=== PATIENT | male | born 1950 | race Caucasian/White ===

== ENCOUNTER → 2019-01-06 | Outpatient (CLI) | payer MEDICARE, OTHER ==
--- NOTE | 2019-01-06 17:51 | REP ---
MRI brain without contrast: History: Paresthesias of the skin. No comparison brain imaging. Technique: Axial and sagittal imaging planes are utilized for T1 and T2-weighted scans. Sequences include spin-echo, fast spin echo, FLAIR, and diffusion weighted sequences. MRI findings: No bony calvarial lesion is appreciated. Craniocervical junction and upper cervical cord are normal in appearance. There are mild mucosal changes affecting the ethmoid , frontal, left maxillary sinus as consistent with mild paranasal sinus disease. No intraorbital abnormality is seen. The deep facial and skull base soft tissues are unremarkable. Duran-white differentiation pattern is normal above and below the tentorium. There is no significant white matter lesion. There is no evidence of intracranial hemorrhage. Diffusion weighted scans show no evidence of acute ischemia. There is a pattern of low T1 low T2 signal intensity in the basal ganglia bilaterally consistent with physiologic basal ganglia calcification. No extra-axial fluid collection or mass seen. Impression: No acute intracranial abnormality. Electronically Signed by Miguel A Niño MD 01/06/2019 06:23 P
== END ==
LOC: M RAD 15:58
PROVIDERS: ATTEND Nurse Practitioner Family
DX: R20.2 Paresthesia of skin (principal)

== ENCOUNTER 2019-01-26 01:14 | Emergency (ER) | payer MEDICARE, OTHER ==
[~2019-01-26] VITALS: Ht 180.3 cm; Wt 100.0 kg
[2019-01-26 01:21] VITALS: BP 147/79
[2019-01-26] MEDS ORDERED: LACTULOSE 20 GM/30 ML SYRUP UD PO ONE (02:45)
[2019-01-26] MEDS ORDERED: GLYCERIN ADULT SUPP PR ONE (04:30)
== END 2019-01-26 05:23 | disposition home or self-care (01) ==
LOC: M ED 01:14
DX: K59.00 Constipation, unspecified (principal); J44.9 Chronic obstructive pulmonary disease, unspecified; Z87.891 Personal history of nicotine dependence; Z79.899 Other long term (current) drug therapy

== ENCOUNTER → 2020-08-25 | Outpatient (CLI) | payer MEDICARE, MEDICAID ==
[2020-08-25 13:16] LABS: ALT/SGPT 21 U/L (12-78); BILIRUBIN,TOTAL 0.7 MG/DL (0.2-1.0); BLOOD UREA NITROGEN 24 MG/DL (7-18); CALCIUM LEVEL 9.7 MG/DL (8.8-10.2); CARBON DIOXIDE LEVEL 28 MEQ/L (21-32); CHLORIDE LEVEL 108 MEQ/L (98-107); CHOLESTEROL LEVEL 218 MG/DL (<200); CHOLESTEROL RISK RATIO 4.274 (<5); CREATININE FOR GFR 1.16 MG/DL (0.70-1.30); FREE T4 1.11 NG/DL (0.76-1.46); GLOMERULAR FILTRATION RATE > 60.0 (>49); GLUCOSE, FASTING 101 MG/DL (70-100); HDL CHOLESTEROL 51 MG/DL (>40); LDL CHOLESTEROL 147 MG/DL (<100); NON-HDL-C 167 MG/DL; POTASSIUM SERUM 4.4 MEQ/L (3.5-5.1); SODIUM LEVEL 139 MEQ/L (136-145); TRIGLYCERIDES LEVEL 101 MG/DL (<150)
[2020-08-25 13:19] LABS: MAU/CREAT RATIO 3.9 MCG/MG (0.0-30.0)
[2020-08-25 13:25] LABS: HEMOGLOBIN A1c 5.7 %
== END ==
LOC: M LAB 11:43
PROVIDERS: ATTEND Physician Assistant
DX: E78.2 Mixed hyperlipidemia (principal); E11.9 Type 2 diabetes mellitus without complications; E03.9 Hypothyroidism, unspecified; I11.9 Hypertensive heart disease without heart failure; Z12.5 Encounter for screening for malignant neoplasm of prostate
CPT/HCPCS: 36415; 80053; 80061; 82043; 83036; 84439; 84443; G0103; G0463

== ENCOUNTER → 2021-05-10 | Outpatient (CLI) | payer OTHER, MEDICAID ==
[2021-05-10 14:46] LABS: BLOOD UREA NITROGEN 22 MG/DL (7-18); CREATININE FOR GFR 1.14 MG/DL (0.70-1.30); GLOMERULAR FILTRATION RATE > 60.0 (>49); GLUCOSE, FASTING 126 MG/DL (70-100)
[2021-05-10 14:47] LABS: ALBUMIN 3.6 GM/DL (3.2-5.2); ALT/SGPT 21 U/L (12-78); BILIRUBIN,TOTAL 0.4 MG/DL (0.2-1.0); CALCIUM LEVEL 9.3 MG/DL (8.8-10.2); CARBON DIOXIDE LEVEL 28 MEQ/L (21-32); CHLORIDE LEVEL 106 MEQ/L (98-107); CHOLESTEROL LEVEL 144 MG/DL (<200); HDL CHOLESTEROL 45 MG/DL (>40); LDL CHOLESTEROL 75 MG/DL (<100); NON-HDL-C 99 MG/DL; POTASSIUM SERUM 4.1 MEQ/L (3.5-5.1); SODIUM LEVEL 140 MEQ/L (136-145); TRIGLYCERIDES LEVEL 118 MG/DL (<150); VITAMIN B12 LEVEL 553 PG/ML (247-911)
[2021-05-10 15:16] LABS: MALB URINE SIEMENS 21.6 MG/L; MAU/CREAT RATIO 9.9 MCG/MG (0.0-30.0)
== END ==
LOC: M PLALAB 10:30
PROVIDERS: ATTEND Nurse Practitioner Adult Health
DX: E03.9 Hypothyroidism, unspecified (principal); E11.9 Type 2 diabetes mellitus without complications; I11.9 Hypertensive heart disease without heart failure; R41.3 Other amnesia; E78.2 Mixed hyperlipidemia

== ENCOUNTER → 2022-08-27 | Outpatient (CLI) | payer OTHER, MEDICAID ==
[2022-08-27 18:51] LABS: ALBUMIN 3.8 G/DL (3.2-5.2); ALKALINE PHOSPHATASE 108 U/L (46-116); ALT/SGPT 15 U/L (7.0-40); AST/SGOT < 8 U/L (<34); BILIRUBIN,TOTAL 0.5 MG/DL (0.3-1.2); BLOOD UREA NITROGEN 22 MG/DL (9-23); CALCIUM LEVEL 9.3 MG/DL (8.3-10.6); CARBON DIOXIDE LEVEL 28 MMOL/L (20-31); CHLORIDE LEVEL 109 MMOL/L (98-107); CHOLESTEROL LEVEL 131 MG/DL (<200); CREATININE FOR GFR 1.12 MG/DL (0.70-1.30); GLOMERULAR FILTRATION RATE > 60.0 (>42); GLUCOSE, FASTING 104 MG/DL (74-106); HDL CHOLESTEROL 42.2 MG/DL (>40); LDL CHOLESTEROL 69.2 MG/DL (<100); NON-HDL-C 88.8 MG/DL; POTASSIUM SERUM 4.5 MMOL/L (3.5-5.1); SODIUM LEVEL 143 MMOL/L (136-145); TOTAL PROTEIN 6.7 G/DL (5.7-8.2); TRIGLYCERIDES LEVEL 98 MG/DL (<150)
[2022-08-27 18:53] LABS: THYROID STIMULATING HORMONE 1.312 uIU/ML (0.55-4.78); VITAMIN B12 LEVEL 235 PG/ML (211-911)
== END ==
LOC: M PLALAB 15:13
PROVIDERS: ATTEND Nurse Practitioner Adult Health
DX: E78.2 Mixed hyperlipidemia (principal); E11.9 Type 2 diabetes mellitus without complications; E03.9 Hypothyroidism, unspecified; R41.3 Other amnesia; I11.9 Hypertensive heart disease without heart failure

== ENCOUNTER 2023-08-21 08:36 | Day surgery (SDC) | payer OTHER, MEDICAID ==
[~2023-08-21] VITALS: Ht 180.3 cm; Wt 114.7 kg
[~2023-08-21 08:36] MED LIST: ALBU8.5H INH; FURO40TA2 PO; LEVO50TA5 PO; METF500T13 PO; METO50TA7 PO; MM S100C PO; OMEP40CA5 PO; PHENYLEPHRINE 10% OPHTH SOL 5ML OD PRN; SIMV-254 PO; SYMB16INH INH; XALA0.007 OU
[2023-08-21] MEDS: OFLOXACIN 0.3 % (OCUFLOX) OPTH SOL 5ML OD ONE (09:50)
[2023-08-21] MEDS: LIDOCAINE 3.5 % 1ML OPHTH TOPICAL GEL OU ONE (09:50)
[2023-08-21] MEDS ORDERED: fentaNYL 100 MCG/2 ML INJECTION As Ordered ONE (10:18)
[2023-08-21] MEDS ORDERED: MIDAZOLAM INJ 2MG/2ML VIAL As Ordered ONE (10:18)
[2023-08-21] MEDS: CEFUROXIME 1MG/0.1ML INTRACAMERAL INJ As Ordered ONE (10:25)
[2023-08-21] MEDS: LIDOCAINE 1% SDV 5ML VIAL As Ordered ONE (10:25)
[2023-08-21] MEDS: BSS IRRIG/VANCO(10MG)/TOBRA(5MG)/EPINEPH(1:1000-0.5CC)500ML BAG-ORONLY As Ordered ONE (10:25)
[2023-08-21 10:36] VITALS: BP 157/88; TEMP 97.9; O2SAT 95
[2023-08-21] MEDS: ATROPINE SULFATE 1% OPHTH SOLN 2ML BTL OD SCH (11:39)
[2023-08-21] MEDS: PHENYLEPHRINE 2.5% OPHTH SOL 2ML OD SCH (11:40)
[2023-08-21] MEDS: TROPICAMIDE 1% OPHTH SOLN 15ML OD SCH (11:40)
== END 2023-08-21 10:59 | disposition home or self-care (01) ==
LOC: M SDC 08:36
PROVIDERS: ATTEND Ophthalmology
DX: H25.11 Age-related nuclear cataract, right eye (principal); I10 Essential (primary) hypertension; E11.9 Type 2 diabetes mellitus without complications; Z86.73 Personal history of transient ischemic attack (TIA), and cerebral infarction without residual deficits; E03.9 Hypothyroidism, unspecified; J44.9 Chronic obstructive pulmonary disease, unspecified; K59.04 Chronic idiopathic constipation; R21 Rash and other nonspecific skin eruption; Z79.51 Long term (current) use of inhaled steroids; Z79.899 Other long term (current) drug therapy
CPT/HCPCS: 66984; J0697; J2250; J3010; V2632

== ENCOUNTER 2023-09-11 10:41 | Day surgery (SDC) | payer OTHER, MEDICAID ==
[~2023-09-11] VITALS: Ht 180.3 cm; Wt 102.1 kg
[~2023-09-11 10:41] MED LIST changes: -PHENYLEPHRINE 10% OPHTH SOL 5ML OD PRN; +PHENYLEPHRINE 10% OPHTH SOL 5ML OS PRN
[2023-09-11] MEDS ORDERED: DEXTROSE 50% 50ML SYRINGE IV PRN (11:35)
[2023-09-11] MEDS ORDERED: GLUCAGON INJ 1MG VIAL SC PRN (11:35)
[2023-09-11] MEDS ORDERED: INSULIN LISPRO (NovoLOG) PER UNIT SC PRN (11:35)
[2023-09-11] MEDS ORDERED: GLUCOSE 4 GM CHEW PO PRN (11:35)
[2023-09-11] MEDS: LIDOCAINE 3.5 % 1ML OPHTH TOPICAL GEL OU ONE (13:30)
[2023-09-11] MEDS: PHENYLEPHRINE 2.5% OPHTH SOL 2ML OS SCH (13:40)
[2023-09-11] MEDS: ATROPINE SULFATE 1% OPHTH SOLN 2ML BTL OS SCH (13:40)
[2023-09-11] MEDS: TROPICAMIDE 1% OPHTH SOLN 15ML OS SCH (13:40)
[2023-09-11] MEDS: OFLOXACIN 0.3 % (OCUFLOX) OPTH SOL 5ML OS ONE (14:00)
[2023-09-11] MEDS ORDERED: fentaNYL 100 MCG/2 ML INJECTION As Ordered ONE (14:07)
[2023-09-11] MEDS ORDERED: MIDAZOLAM INJ 2MG/2ML VIAL As Ordered ONE (14:07)
[2023-09-11] MEDS: POVIDONE-IODINE 5% OPHTH PREP SOL 30ML As Ordered ONE (14:43)
[2023-09-11] MEDS: LIDOCAINE 1% SDV 5ML VIAL As Ordered ONE (14:45)
[2023-09-11] MEDS: BSS IRRIG/VANCO(10MG)/TOBRA(5MG)/EPINEPH(1:1000-0.5CC)500ML BAG-ORONLY As Ordered ONE (14:45)
[2023-09-11] MEDS: CEFUROXIME 1MG/0.1ML INTRACAMERAL INJ As Ordered ONE (14:46)
[2023-09-11 14:58] VITALS: BP 151/72; TEMP 96.9; O2SAT 96
== END 2023-09-11 16:00 | disposition home or self-care (01) ==
LOC: M SDC 10:41
PROVIDERS: ATTEND Ophthalmology
DX: H25.12 Age-related nuclear cataract, left eye (principal); I10 Essential (primary) hypertension; E03.9 Hypothyroidism, unspecified; E11.9 Type 2 diabetes mellitus without complications; K59.04 Chronic idiopathic constipation; R21 Rash and other nonspecific skin eruption; J44.9 Chronic obstructive pulmonary disease, unspecified; Z86.73 Personal history of transient ischemic attack (TIA), and cerebral infarction without residual deficits; Z79.899 Other long term (current) drug therapy; Z79.51 Long term (current) use of inhaled steroids; Z79.84 Long term (current) use of oral hypoglycemic drugs
CPT/HCPCS: 66984; J0697; J2250; J3010; V2632